=== PATIENT | male | born 1980 | race African-American/Black ===

== ENCOUNTER 2018-01-06 14:03 | Inpatient (IN) | payer OTHER ==
[~2018-01-06] VITALS: Ht 188 cm; Wt 74.0 kg
[2018-01-06] MEDS ORDERED: SODIUM CHLORIDE 0.9% 1,000 ML IV ONE ×3 (14:15→17:30)
[2018-01-06] MEDS ORDERED: DiphenhydrAMINE HCL 50 MG/ML VIAL IM ONE (14:15)
[2018-01-06] MEDS ORDERED: HALOPERIDOL LACTATE 5 MG/ML VIAL IM ONE ×2 (14:15→14:30)
[2018-01-06] MEDS ORDERED: LORazepam 2 MG/ML VIAL IM ONE ×2 (14:15→14:30)
[2018-01-06 14:48] LABS: AMPHET/METH SCREEN,URINE POSITIVE (NEGATIVE); BARBITURATE SCREEN, URINE NEGATIVE (NEGATIVE); BENZODIAZEPINES SCREEN,URINE NEGATIVE (NEGATIVE); CANNABINOID SCREEN,URINE POSITIVE (NEGATIVE); COCAINE SCREEN,URINE NEGATIVE (NEGATIVE); METHADONE SCREEN, URINE NEGATIVE (NEGATIVE); OPIATE SCREEN,URINE NEGATIVE (NEGATIVE)
[2018-01-06 14:50] LABS: PHENCYCLIDINE SCREEN,URINE NEGATIVE (NEGATIVE)
[2018-01-06 15:01] LABS: APPEARANCE,URINE CLOUDY (CLEAR); BILIRUBIN,URINE NEGATIVE (NEGATIVE); GLUCOSE, URINE (UA) NEGATIVE (NEGATIVE); KETONES,URINE 15 mg/dL (NEGATIVE); LEUKOCYTE ESTERASE ,URINE NEGATIVE (NEGATIVE); NITRATE,URINE NEGATIVE (NEGATIVE); OCCULT BLOOD,URINE NEGATIVE (NEGATIVE); PROTEIN,URINE POS 1+ (NEGATIVE)
[2018-01-06 15:08] LABS: BACTERIA,URINE Few /HPF (None Seen); RBC,URINE None Seen /HPF (0-2)
[2018-01-06 15:09] LABS: AMORPHOUS SEDIMENT,UR Few /LPF (None Seen); SQUAMOUS EPITHELIAL CELL,UR Few /LPF (None Seen)
[2018-01-06 15:21] LABS: HEMATOCRIT 28.6 % (41-53); HEMOGLOBIN 8.6 g/dL (13.5-17.5); MEAN CORPUSCULAR HEMOGLOBIN 16.7 pg (26.0-34.0); MEAN CORPUSCULAR HGB CONC 30.1 G/dL (31.0-37.0); MEAN CORPUSCULAR VOLUME 56 fL (80-100); PLATELET COUNT (AUTO) 457 K/uL (150-450); RED BLOOD CELL COUNT(AUTO) 5.14 MIL/uL (4.50-5.90); RED CELL DISTRIBUTION WIDTH 22.5 % (11.5-14.5)
[2018-01-06 15:23] LABS: ANION GAP 20 mmol/L (8-16); CALCIUM, TOTAL 8.4 mg/dL (8.8-10.5); CARBON DIOXIDE 18 mmol/L (22-29); CHLORIDE 106 mmol/L (98-107); CREATININE 2.71 mg/dL (0.60-1.30); GLOMERULAR FILTR. RATE CALC 25 mL/min (>60); GLUCOSE,RANDOM 75 mg/dL (70-110); POTASSIUM 4.2 mmol/L (3.5-5.1); SODIUM SERUM 144 mmol/L (136-145); UREA NITROGEN, BLOOD 82 mg/dL (7-18)
[2018-01-06] MEDS ORDERED: LORazepam 2 MG/ML VIAL IVP ONE ×2 (15:30→16:00)
[2018-01-06 15:37] LABS: BAND NEUTROPHILS % (MANUAL) 1 % (0-5); LYMPHOCYTES % (MANUAL) 7 % (22-44); MONOCYTES % (MANUAL) 8 % (2-9); SEGMENTED NEUTROPHILS % 84 % (40-70)
[2018-01-06 15:39] LABS: PLATELET MORPHOLOGY COMMENT LARGE PLTS PRESENT
[2018-01-06 15:58] LABS: ALANINE AMINOTRANSFERASE 87 U/L (12-78); ALBUMIN 3.7 g/dL (3.4-5.0); ALKALINE PHOSPHATASE 154 U/L (46-116); ASPARTATE AMINOTRANSFERASE 173 U/L (15-37); BILIRUBIN,TOTAL 0.9 mg/dL (0.1-1.0); CREATINE KINASE, TOTAL ONLY 4276 U/L (39-308); TOTAL PROTEIN, SERUM 8.8 g/dL (6.4-8.2)
[2018-01-06] MEDS ORDERED: KETAMINE HCL 50 MG/ML 10 ML VIAL IVP ONE (16:15)
[2018-01-06] MEDS ORDERED: ACETAMINOPHEN 325 MG TABLET PO PRN (17:30)
[2018-01-06] MEDS ORDERED: ONDANSETRON HCL 4 MG/2 ML VIAL IVP PRN ×2 (17:30→20:30)
[2018-01-06 17:53] LABS: GLUCOSE,POINT OF CARE 68 MG/DL (70-110)
[2018-01-06 19:43] LABS: GLUCOSE,POINT OF CARE 75 MG/DL (70-110)
[2018-01-06] MEDS ORDERED: MAGNESIUM HYDROXIDE SUSPENSION 30 ML UDCUP PO PRN (20:30)
[2018-01-06] MEDS ORDERED: HALOPERIDOL LACTATE 5 MG/ML VIAL IM PRN (20:30)
[2018-01-06] MEDS: SODIUM CHLORIDE 0.9% 1,000 ML IV SCH (20:30)
[2018-01-06] MEDS: DOCUSATE SODIUM 100 MG CAPSULE PO SCH (21:00)
[2018-01-06] MEDS: PANTOPRAZOLE SODIUM 40 MG/VIAL IVP SCH (22:21)
[2018-01-07] MEDS: LORazepam 2 MG/ML VIAL IVP PRN ×4 (01:26→11:28)
[2018-01-07] MEDS: SODIUM CHLORIDE 0.9% 1,000 ML IV SCH (06:07)
[2018-01-07 08:17] LABS: BASOPHILS % (AUTO) 0.3 % (0.0-2.0); EOSINOPHILS % (AUTO) 0.2 % (1.0-6.0); HEMATOCRIT 30.5 % (41-53); HEMOGLOBIN 9.2 g/dL (13.5-17.5); LYMPHOCYTES # (AUTO) 2.4 K/uL (1.0-4.8); LYMPHOCYTES % (AUTO) 23.5 % (22.0-44.0); MEAN CORPUSCULAR HEMOGLOBIN 17.2 pg (26.0-34.0); MEAN CORPUSCULAR HGB CONC 30.3 G/dL (31.0-37.0); MEAN CORPUSCULAR VOLUME 57 fL (80-100); MONOCYTES # (AUTO) 1.1 K/uL (0.1-1.0); MONOCYTES % (AUTO) 10.5 % (2.0-9.0); NEUTROPHILS # (AUTO) 6.8 K/uL (1.8-7.7); NEUTROPHILS % (AUTO) 65.5 % (40.0-70.0); PLATELET COUNT (AUTO) 418 K/uL (150-450); RED BLOOD CELL COUNT(AUTO) 5.36 MIL/uL (4.50-5.90); RED CELL DISTRIBUTION WIDTH 23.3 % (11.5-14.5)
[2018-01-07] MEDS: PANTOPRAZOLE SODIUM 40 MG/VIAL IVP SCH (08:21)
[2018-01-07] MEDS: DOCUSATE SODIUM 100 MG CAPSULE PO SCH ×2 (08:25→21:21)
[2018-01-07 08:37] VITALS: BP 117/69
[2018-01-07 08:49] LABS: ALBUMIN 3.4 g/dL (3.4-5.0); BILIRUBIN,TOTAL 0.6 mg/dL (0.1-1.0); CALCIUM, TOTAL 7.9 mg/dL (8.8-10.5); CREATININE 1.29 mg/dL (0.60-1.30); POTASSIUM 4.7 mmol/L (3.5-5.1); TOTAL PROTEIN, SERUM 8.3 g/dL (6.4-8.2)
[2018-01-07] MEDS: SODIUM CHLORIDE 0.45% 1,000 ML IV SCH ×2 (10:06→21:21)
[2018-01-07] MEDS: ACETAMINOPHEN 325 MG TABLET PO PRN ×2 (16:26→21:22)
[2018-01-07 16:30] VITALS: BP 147/69
[2018-01-07 19:38] VITALS: BP 123/64
[2018-01-07 23:24] VITALS: BP 117/61
[2018-01-08 04:06] VITALS: BP 107/62
[2018-01-08 07:06] LABS: ALANINE AMINOTRANSFERASE 100 U/L (12-78); ALBUMIN 2.9 g/dL (3.4-5.0); ALKALINE PHOSPHATASE 123 U/L (46-116); ANION GAP 8 mmol/L (8-16); ASPARTATE AMINOTRANSFERASE 133 U/L (15-37); BILIRUBIN,TOTAL 0.7 mg/dL (0.1-1.0); CALCIUM, TOTAL 8.1 mg/dL (8.8-10.5); CARBON DIOXIDE 26 mmol/L (22-29); CHLORIDE 111 mmol/L (98-107); CREATININE 0.98 mg/dL (0.60-1.30); GLUCOSE,RANDOM 76 mg/dL (70-110); POTASSIUM 4.1 mmol/L (3.5-5.1); SODIUM SERUM 145 mmol/L (136-145); TOTAL PROTEIN, SERUM 7.9 g/dL (6.4-8.2); UREA NITROGEN, BLOOD 25 mg/dL (7-18)
[2018-01-08 07:07] LABS: GLOMERULAR FILTR. RATE CALC > 60 mL/min (>60)
[2018-01-08 07:08] LABS: CREATINE KINASE, TOTAL ONLY 1976 U/L (39-308)
[2018-01-08 07:27] VITALS: BP 118/67
[2018-01-08] MEDS: PANTOPRAZOLE SODIUM 40 MG/VIAL IVP SCH (08:26)
[2018-01-08] MEDS: DOCUSATE SODIUM 100 MG CAPSULE PO SCH ×2 (08:26→21:13)
[2018-01-08] MEDS: SODIUM CHLORIDE 0.45% 1,000 ML IV SCH ×2 (08:26→21:15)
[2018-01-08 11:09] VITALS: BP 122/70
[2018-01-08 15:58] VITALS: BP 122/75
[2018-01-08 20:05] VITALS: BP 113/75
[2018-01-08] MEDS ORDERED: MIRTAZAPINE 15 MG TABLET PO SCH (21:00)
[2018-01-08] MEDS: ACETAMINOPHEN 325 MG TABLET PO PRN (21:18)
[2018-01-08 23:21] VITALS: BP 115/69
[2018-01-09 04:30] VITALS: BP 120/74
[2018-01-09] MEDS: DOCUSATE SODIUM 100 MG CAPSULE PO SCH (07:54)
[2018-01-09] MEDS: SODIUM CHLORIDE 0.45% 1,000 ML IV SCH ×2 (07:54→12:00)
[2018-01-09] MEDS: PANTOPRAZOLE SODIUM 40 MG/VIAL IVP SCH (07:54)
[2018-01-09 08:08] VITALS: BP 114/77
[2018-01-09] MEDS ORDERED: ARIPiprazole 5 MG TABLET PO SCH (09:00)
[2018-01-09 12:02] VITALS: BP 114/72
[2018-01-09] MEDS ORDERED: ARIP5TAB8 PO (14:04)
[2018-01-09] MEDS ORDERED: MIRT15 PO (14:04)
[2018-01-09 15:03] VITALS: BP 115/69
== END 2018-01-09 15:13 | disposition home or self-care (01) | DRG 682 ==
LOC: EMS 14:06 → EDBD 01-07 01:00 → 5N 01-07 01:00
PROVIDERS: ADMIT Internal Medicine; ATTEND Internal Medicine
DX: N17.9 Acute kidney failure, unspecified (principal); G92 Toxic encephalopathy; M62.82 Rhabdomyolysis; R65.10 Systemic inflammatory response syndrome (SIRS) of non-infectious origin without acute organ dysfunction; E87.0 Hyperosmolality and hypernatremia; B86 Scabies; F19.10 Other psychoactive substance abuse, uncomplicated; D50.9 Iron deficiency anemia, unspecified; F25.0 Schizoaffective disorder, bipolar type; F15.129 Other stimulant abuse with intoxication, unspecified; Z91.19 Patient's noncompliance with other medical treatment and regimen; Z78.1 Physical restraint status; Z59.0 Homelessness; F43.10 Post-traumatic stress disorder, unspecified; Z79.899 Other long term (current) drug therapy
CPT/HCPCS: 51702; 70450; 93005; 96372; 96374; 96375; 99291; C9113; G0378; G0480; J1630; J2060; J3490; J7030